=== PATIENT | male | born 1955 | race Caucasian/White ===

== ENCOUNTER 2018-03-29 15:26 | Emergency (ER) | payer MEDICARE, MEDICAID ==
[~2018-03-29] VITALS: Ht 195.6 cm; Wt 94.6 kg
[2018-03-29 15:39] VITALS: BP 169/91
[2018-03-29] MEDS ORDERED: dexamethasone sod phosphate 10mg/ml inj IM STA (16:34)
[2018-03-29] MEDS ORDERED: azithromycin 250mg tablet PO ONE (16:35)
[2018-03-29] MEDS ORDERED: AZIT500T2 PO (16:40)
[2018-03-29] MEDS ORDERED: BENZ-16 PO (16:40)
== END 2018-03-29 16:53 | disposition home or self-care (01) ==
LOC: ER 15:27
DX: J45.901 Unspecified asthma with (acute) exacerbation (principal); J20.9 Acute bronchitis, unspecified; Z79.2 Long term (current) use of antibiotics; Z79.899 Other long term (current) drug therapy
CPT/HCPCS: 96372; 99283; J1100

== ENCOUNTER 2018-04-17 14:48 | Emergency (ER) | payer MEDICARE, MEDICAID ==
[~2018-04-17] VITALS: Ht 195.6 cm; Wt 95.5 kg
[~2018-04-17 14:48] MED LIST: BENZ-16 PO
[2018-04-17] MEDS ORDERED: ipratropium/albuterol 3ml nebule NEB ONE (15:05)
[2018-04-17] MEDS ORDERED: predniSONE 20 mg tablet PO ONE (15:05)
[2018-04-17] MEDS ORDERED: LEVO750T21 PO (15:48)
[2018-04-17] MEDS ORDERED: PRED20TA PO (16:13)
[2018-04-17 16:15] VITALS: BP 173/106
== END 2018-04-17 16:17 | disposition home or self-care (01) ==
LOC: ER 14:49
DX: J20.9 Acute bronchitis, unspecified (principal); J45.909 Unspecified asthma, uncomplicated; Z79.2 Long term (current) use of antibiotics; Z79.899 Other long term (current) drug therapy
CPT/HCPCS: 71046; 94640; 94760; 99283; J7512

== ENCOUNTER 2018-06-10 17:04 | Emergency (ER) | payer MEDICARE, MEDICAID ==
[~2018-06-10] VITALS: Ht 195.6 cm; Wt 99.6 kg
[2018-06-10] MEDS ORDERED: prednisone 10mg tablet PO SCH (18:45)
[2018-06-10] MEDS ORDERED: ipratropium/albuterol 3ml nebule NEB ONE (18:45)
[2018-06-10] MEDS ORDERED: prednisone 10mg tablet PO ONE (18:45)
[2018-06-10] MEDS ORDERED: predniSONE 20 mg tablet PO ONE (18:50)
[2018-06-10] MEDS ORDERED: PRED20TA PO (19:12)
[2018-06-10] MEDS ORDERED: BUDE90AE PO (19:12)
[2018-06-10 19:24] VITALS: BP 177/111
[2018-06-11] MEDS ORDERED: [UNRECOGNIZED DRUG - CODE] INH (09:22)
[2018-06-11] MEDS ORDERED: ALB0.5UD IH (09:22)
== END 2018-06-10 19:25 | disposition home or self-care (01) ==
LOC: ER 17:04
DX: J45.901 Unspecified asthma with (acute) exacerbation (principal); Z79.899 Other long term (current) drug therapy
CPT/HCPCS: 94640; 94760; 99283; J7512

== ENCOUNTER 2018-06-11 06:42 | Emergency (ER) | payer MEDICARE, MEDICAID ==
[~2018-06-11] VITALS: Ht 195.6 cm; Wt 98.4 kg
[~2018-06-11 06:42] MED LIST changes: -BENZ-16 PO; +BUDE90AE PO; +PRED20TA PO
[2018-06-11] MEDS ORDERED: albuterol 2.5 MG/3 ML nebule NEB ONE ×2 (07:40→08:25)
[2018-06-11] MEDS ORDERED: normal saline 1000ML IV soln IVB ONE (07:40)
[2018-06-11] MEDS ORDERED: ipratropium/albuterol 3ml nebule NEB ONE (07:40)
[2018-06-11] MEDS ORDERED: methylPREDNISolone sod succ 125mg/2ml vial IV ONE (07:40)
[2018-06-11 08:01] LABS: BASOPHILS % (AUTO) 0.4 % (0-1); EOSINOPHILS # (AUTO) 0.1 X10'3 (0-0.9); EOSINOPHILS % (AUTO) 1.2 % (0-6); HEMATOCRIT 48.5 % (42.0-52.0); HEMOGLOBIN 16.6 g/dl (14.0-17.9); LYMPHOCYTES # (AUTO) 0.4 X10'3 (1.1-4.8); LYMPHOCYTES % (AUTO) 3.6 % (21-51); MEAN CORPUSCULAR HEMOGLOBIN 30.3 PG (27.0-31.0); MEAN CORPUSCULAR HGB CONC 34.1 % (33.0-36.5); MEAN CORPUSCULAR VOLUME 88.8 FL (78-98); MEAN PLATELET VOLUME 6.6 FL (7.4-10.4); MONOCYTES # (AUTO) 0.3 X10'3 (0-0.9); MONOCYTES % (AUTO) 2.4 % (2-12); NEUTROPHILS # (AUTO) 10.4 X10'3 (1.8-7.7); NEUTROPHILS % (AUTO) 92.4 % (42-75); PLATELET COUNT 295 X10'3 (140-440); RED BLOOD COUNT 5.47 X10'6 (4.70-6.10); RED CELL DISTRIBUTION WIDTH 14.6 % (11.5-14.5); WHITE BLOOD COUNT 11.3 X10'3 (4.5-11.0)
[2018-06-11 08:11] LABS: ALANINE AMINOTRANSFERASE 27 U/L (12-78); ALBUMIN 4.3 G/DL (3.4-5.0); ALBUMIN/GLOBULIN RATIO 1.1 (1.1-1.5); ALKALINE PHOSPHATASE 85 IU/L (46-116); ANION GAP 14 (8-16); ASPARTATE AMINO TRANSFERASE 19 U/L (10-37); BILIRUBIN,TOTAL 0.9 MG/DL (0.1-1.0); BLOOD UREA NITROGEN 16 MG/DL (7-18); BUN/CREATININE RATIO 11.9 (5.4-32.0); CALCIUM 9.2 MG/DL (8.5-10.1); CHLORIDE 104 MMOL/L (99-107); CREATININE 1.34 MG/DL (0.60-1.10); GLUCOSE 130 MG/DL (70-104); POTASSIUM 4.2 MMOL/L (3.5-5.1); SODIUM 140 MMOL/L (135-145); TOTAL CARBON DIOXIDE 22.2 MMOL/L (24-32); TOTAL PROTEIN 8.2 G/DL (6.4-8.2); eGFR 54 ML/MIN
[2018-06-11] MEDS ORDERED: [UNRECOGNIZED DRUG - CODE] INH (09:22)
[2018-06-11] MEDS ORDERED: ALB0.5UD IH (09:22)
--- NOTE | 2018-06-11 09:25 | NUR ---
Pt reports that he has high blood pressure and does not take medications. He is trying to get established with pcp.
[2018-06-11 09:44] VITALS: BP 178/108
== END 2018-06-11 09:47 | disposition home or self-care (01) ==
LOC: ER 06:42
DX: J44.1 Chronic obstructive pulmonary disease with (acute) exacerbation (principal); F12.90 Cannabis use, unspecified, uncomplicated; G89.29 Other chronic pain; M19.90 Unspecified osteoarthritis, unspecified site; Z79.899 Other long term (current) drug therapy
CPT/HCPCS: 36415; 71046; 80053; 83880; 84484; 85025; 93005; 94640; 94760; 96374; 99284; J2930; J7030; 99283

== ENCOUNTER 2020-02-01 07:04 | Emergency (ER) | payer MEDICARE, MEDICAID ==
[~2020-02-01] VITALS: Ht 195.6 cm; Wt 101.5 kg
[~2020-02-01 07:04] MED LIST changes: -PRED20TA PO; +[UNRECOGNIZED DRUG - CODE] INH
[2020-02-01 07:08] VITALS: BP 201/98
[2020-02-01 08:02] LABS: EOSINOPHILS # (AUTO) 0.3 X10'3 (0-0.9); HEMATOCRIT 48.2 % (42.0-52.0); WHITE BLOOD COUNT 6.7 X10'3 (4.5-11.0)
[2020-02-01 08:04] LABS: BASOPHILS # (AUTO) 0.1 X10'3 (0-0.2); BASOPHILS % (AUTO) 1.3 % (0-1); EOSINOPHILS % (AUTO) 4.3 % (0-6); HEMOGLOBIN 16.5 g/dl (14.0-17.9); LYMPHOCYTES # (AUTO) 1.7 X10'3 (1.1-4.8); LYMPHOCYTES % (AUTO) 26.2 % (21-51); MEAN CORPUSCULAR HEMOGLOBIN 31.1 PG (27.0-31.0); MEAN CORPUSCULAR HGB CONC 34.3 g/dL (33.0-36.5); MEAN CORPUSCULAR VOLUME 90.7 FL (78-98); MEAN PLATELET VOLUME 6.7 FL (7.4-10.4); MONOCYTES # (AUTO) 0.4 X10'3 (0-0.9); MONOCYTES % (AUTO) 5.9 % (2-12); NEUTROPHILS # (AUTO) 4.1 X10'3 (1.8-7.7); NEUTROPHILS % (AUTO) 62.3 % (42-75); PLATELET COUNT 315 X10'3 (140-440); RED BLOOD COUNT 5.31 X10'6 (4.70-6.10); RED CELL DISTRIBUTION WIDTH 15.5 % (11.5-14.5)
[2020-02-01 08:14] LABS: ALANINE AMINOTRANSFERASE 37 U/L (12-78); ALBUMIN 4.1 G/DL (3.4-5.0); ALBUMIN/GLOBULIN RATIO 1.1 (1.1-1.5); ALKALINE PHOSPHATASE 96 IU/L (46-116); ANION GAP 8 (8-16); ASPARTATE AMINO TRANSFERASE 20 U/L (10-37); BILIRUBIN,TOTAL 0.7 MG/DL (0.1-1.0); BLOOD UREA NITROGEN 13 MG/DL (7-18); CALCIUM 8.8 MG/DL (8.5-10.1); CHLORIDE 103 MMOL/L (99-107); CREATININE 1.44 MG/DL (0.60-1.10); GLUCOSE 99 MG/DL (70-104); POTASSIUM 3.8 MMOL/L (3.5-5.1); SODIUM 135 MMOL/L (135-145); TOTAL CARBON DIOXIDE 23.9 MMOL/L (24-32); TOTAL PROTEIN 7.7 G/DL (6.4-8.2); eGFR 50 ML/MIN
[2020-02-01] MEDS ORDERED: DULO-31 PO (09:02)
[2020-02-01] MEDS ORDERED: BUDE90AE PO (09:02)
[2020-02-01] MEDS ORDERED: MONT10TA26 PO (09:02)
[2020-02-01] MEDS ORDERED: ALBU6.7H9 INH (09:02)
[2020-02-01] MEDS ORDERED: TRAZ-256 PO (09:02)
[2020-02-01] MEDS ORDERED: LISI30TA4 PO (09:02)
[2020-02-01] MEDS ORDERED: BUDE180A INH (09:02)
== END 2020-02-01 09:12 | disposition home or self-care (01) ==
LOC: ER 07:04
DX: I10 Essential (primary) hypertension (principal); N28.9 Disorder of kidney and ureter, unspecified; J45.909 Unspecified asthma, uncomplicated; M19.90 Unspecified osteoarthritis, unspecified site; G89.29 Other chronic pain; F12.90 Cannabis use, unspecified, uncomplicated; Z76.0 Encounter for issue of repeat prescription; Z91.19 Patient's noncompliance with other medical treatment and regimen; Z72.89 Other problems related to lifestyle; Z79.899 Other long term (current) drug therapy
CPT/HCPCS: 36415; 80053; 85025; 99283

== ENCOUNTER 2020-02-21 16:44 | Emergency (ER) | payer MEDICARE, MEDICAID ==
[~2020-02-21] VITALS: Ht 185.4 cm; Wt 79.0 kg
[~2020-02-21 16:44] MED LIST changes: +ALBU6.7H9 INH; +BUDE180A INH; +DULO-31 PO; +LISI30TA4 PO; +MONT10TA26 PO; +TRAZ-256 PO
[2020-02-21 16:49] VITALS: BP 184/100
[2020-02-21] MEDS ORDERED: TRAZ150T78 PO (16:59)
== END 2020-02-21 17:06 | disposition home or self-care (01) ==
LOC: ER 16:44
DX: G47.00 Insomnia, unspecified (principal); Z76.0 Encounter for issue of repeat prescription; J45.909 Unspecified asthma, uncomplicated; M19.90 Unspecified osteoarthritis, unspecified site; G89.29 Other chronic pain; F12.90 Cannabis use, unspecified, uncomplicated; Z72.89 Other problems related to lifestyle; Z79.899 Other long term (current) drug therapy
CPT/HCPCS: 99281

== ENCOUNTER 2021-03-02 09:55 | Emergency (ER) | payer MEDICARE, MEDICAID ==
[~2021-03-02] VITALS: Ht 185.4 cm; Wt 90.0 kg
[~2021-03-02 09:55] MED LIST changes: -MONT10TA26 PO; +MONT10TA32 PO; +TRAZ150T78 PO
[2021-03-02] MEDS ORDERED: dexamethasone sod phosphate 10mg/ml inj PO STA (12:33)
[2021-03-02] MEDS ORDERED: albuterol 2.5 MG/3 ML nebule NEB ONE (12:35)
[2021-03-02] MEDS ORDERED: metoprolol tartrate 50mg tablet PO ONE (12:35)
[2021-03-02] MEDS ORDERED: ipratropium/albuterol 3ml nebule NEB ONE (12:35)
[2021-03-02] MEDS ORDERED: cloNIDine 0.1 mg tablet PO ONE (12:35)
[2021-03-02] MEDS ORDERED: IPRA4AER IH (12:36)
[2021-03-02 14:33] VITALS: BP 176/94
== END 2021-03-02 14:36 | disposition home or self-care (01) ==
LOC: ER 09:56
DX: J45.909 Unspecified asthma, uncomplicated (principal); I10 Essential (primary) hypertension; R06.02 Shortness of breath; M19.90 Unspecified osteoarthritis, unspecified site; G89.29 Other chronic pain; F12.90 Cannabis use, unspecified, uncomplicated; F17.200 Nicotine dependence, unspecified, uncomplicated; Z72.89 Other problems related to lifestyle; Z79.899 Other long term (current) drug therapy
CPT/HCPCS: 94640; 99284; J1100; 94760

== ENCOUNTER 2021-03-23 17:26 | Emergency (ER) | payer MEDICARE, MEDICAID ==
[~2021-03-23] VITALS: Ht 195.6 cm; Wt 104.5 kg
[~2021-03-23 17:26] MED LIST changes: +IPRA4AER IH; +MONT-40 PO; -MONT10TA32 PO
[2021-03-23] MEDS ORDERED: ipratropium/albuterol 3ml nebule NEB ONE (18:30)
[2021-03-23 21:03] VITALS: BP 160/100
[2021-03-24] MEDS ORDERED: IPRA3AMP31 IH (23:16)
== END 2021-03-23 21:05 | disposition home or self-care (01) ==
LOC: ER 17:27
DX: J45.901 Unspecified asthma with (acute) exacerbation (principal); Z20.822 Contact with and (suspected) exposure to COVID-19; R06.02 Shortness of breath; R05.9 Cough, unspecified; I10 Essential (primary) hypertension; M19.90 Unspecified osteoarthritis, unspecified site; G89.29 Other chronic pain; F17.200 Nicotine dependence, unspecified, uncomplicated; F12.90 Cannabis use, unspecified, uncomplicated; Z72.89 Other problems related to lifestyle; Z79.899 Other long term (current) drug therapy
CPT/HCPCS: 71045; 87635; 94640; 99284; C9803; 94760

== ENCOUNTER 2021-03-24 22:28 | Emergency (ER) | payer MEDICARE, MEDICAID ==
[~2021-03-24] VITALS: Ht 195.6 cm; Wt 107.0 kg
[2021-03-24] MEDS ORDERED: ipratropium/albuterol 3ml nebule NEB PRN (22:45)
[2021-03-24] MEDS ORDERED: IPRA3AMP31 IH (23:16)
--- NOTE | 2021-03-24 23:26 | NUR ---
PATIENT WAS SEEN AND TREATED BY PA. NO DISTRESS. DISCH TO HOME WITH FLU INST.
[2021-03-24 23:30] VITALS: BP 178/94
== END 2021-03-24 23:34 | disposition home or self-care (01) ==
LOC: ER 22:29
DX: J45.901 Unspecified asthma with (acute) exacerbation (principal); J40 Bronchitis, not specified as acute or chronic; R06.02 Shortness of breath; R09.89 Other specified symptoms and signs involving the circulatory and respiratory systems; I10 Essential (primary) hypertension; M19.90 Unspecified osteoarthritis, unspecified site; G89.29 Other chronic pain; F12.90 Cannabis use, unspecified, uncomplicated; Z72.89 Other problems related to lifestyle; Z79.899 Other long term (current) drug therapy
CPT/HCPCS: 94640; 94760; 99283